=== PATIENT | female | born 1980 | race Caucasian/White ===

== ENCOUNTER 2021-12-07 12:11 | Outpatient (CLI) | payer MEDICAID | END 2021-12-07 12:12 | disposition home or self-care (01) | LOC: CSHMAMMO 12:11 | PROVIDERS: ATTEND Nurse Practitioner | DX: Z12.31 Encounter for screening mammogram for malignant neoplasm of breast (principal); Z80.3 Family history of malignant neoplasm of breast | CPT/HCPCS: 77067 ==